=== PATIENT | female | born 1985 | race Two or more races ===

== ENCOUNTER → 2021-09-17 | Outpatient (CLI) | payer SELFPAY ==
[2021-09-20 08:05] LABS: HPV APTIMA, High Risk Negative (Negative)
== END | disposition home or self-care (01) ==
LOC: LABSPEC 12:10
PROVIDERS: Visit Provider Obstetrics & Gynecology
DX: Z12.4 Encounter for screening for malignant neoplasm of cervix (principal)
CPT/HCPCS: 87624; 88175; G0145